=== PATIENT | female | born 1965 | race Caucasian/White ===

== ENCOUNTER 2017-10-04 18:57 | Emergency (ER) | payer OTHER, MEDICAID ==
[~2017-10-04] VITALS: Ht 162.6 cm; Wt 63.5 kg
--- NOTE | 2017-10-04 19:00 | NUR ---
Placed in hallway.
[2017-10-04 19:08] VITALS: BP_SYST 150
--- NOTE | 2017-10-04 19:11 | NUR ---
Patient brought to ER by law enforcement for medical clearance. Patient C/O right antecubital and right posterior calf abscesses and skin abrasion to posterior right wrist. No other medical complaints, denies pain. Patient states that she injured her hand while attempting to open the car door and the abscesses are due to "spider bites" AAOx4, unlabored breathing, no signs of acute distress.
--- NOTE | 2017-10-04 19:15 | NUR ---
ER MD Sumner evaluating the patient
--- NOTE | 2017-10-04 19:17 | NUR ---
Site to right posterior wrist cleansed with NS & iodine. Site measures approximately 1.5cm diammeter. Gauze dressing applied.
[2017-10-04 19:26] VITALS: BP_SYST 142
--- NOTE | 2017-10-04 19:26 | NUR ---
Patient discharged in custody of law enforcement, given written and verbal discharge instructions and verbalizes understanding. Patient in stable condition. ID arm band removed. Patient educated on pain management and to follow up with PMD. Pain Scale 0/10. Opportunity for questions provided and answered. Medication side effect fact sheet provided.
== END 2017-10-04 19:26 | disposition home or self-care (01) ==
LOC: SED 18:57
DX: S60.811A Abrasion of right wrist, initial encounter (principal); W22.8XXA Striking against or struck by other objects, initial encounter; Y93.89 Activity, other specified; Y92.89 Other specified places as the place of occurrence of the external cause; Y99.8 Other external cause status
CPT/HCPCS: 99283